=== PATIENT | male | born 1970 | race Caucasian/White ===

== ENCOUNTER 2022-10-17 11:38 | Inpatient (IN) | payer MEDICAID ==
[~2022-10-17] VITALS: Ht 170.2 cm; Wt 70.8 kg
[2022-10-17] MEDS ORDERED: IV NS 0.9% 1,000 ML BAG IV ONE ×2 (12:00→16:00)
--- NOTE | 2022-10-17 12:00 | NUR ---
PT IN BED 7, UNLABORED BREATHING 95% ON ROOM AIR. C/O IN DISTRESS FROM PAIN IN ABDOMEN 10/10 RESTLESS AND MOANING. PORTUGUESE SPEAKING Hx OF GASTRIC ULCERS AND SCHIZO. STATES THAT HE HAS A SPICY BURRITO YESTERDAY.
[2022-10-17] MEDS ORDERED: ONDANSETRON HCL/PF 4 MG/2 ML VIAL ONE (12:10)
[2022-10-17] MEDS ORDERED: FAMOTIDINE/PF INJ 20 MG/2 ML VIAL IV ONE ×2 (12:10→12:30)
[2022-10-17] MEDS ORDERED: MORPHINE SULFATE INJ 4 MG/ML DISP.SYRIN ONE (12:10)
[2022-10-17 12:21] LABS: BILIRUBIN,URINE NEGATIVE (NEGATIVE); COLOR,URINE YELLOW (YELLOW); LEUKOCYTE ESTERASE ,URINE NEGATIVE (NEGATIVE); NITRITE, URINE NEGATIVE (NEGATIVE); PROTEIN,URINE TRACE mg/dl (NEGATIVE); UGLUCOSE NEGATIVE (NEGATIVE)
[2022-10-17] MEDS ORDERED: ONDANSETRON HCL/PF - ER 4 MG/2 ML VIAL IV ONE (12:30)
[2022-10-17] MEDS ORDERED: IV NS 0.9% 1,000 ML IV ONE (12:30)
[2022-10-17] MEDS ORDERED: MORPHINE SULFATE INJ 2 MG/ML DISP.SYRIN IV ONE (12:30)
[2022-10-17 12:35] LABS: BASOPHILS # (AUTO) 0.1 K/uL (0.0-0.2); BASOPHILS % (AUTO) 0.5 % (0.0-2.0); EOSINOPHILS % (AUTO) 0.6 % (0.0-6.0); HEMATOCRIT 46 % (39-51); HEMOGLOBIN 15.1 g/dL (13.5-17.5); MEAN CORPUSCULAR HGB CONC 33 g/dl (31.0-36.0); MEAN CORPUSCULAR VOLUME 85 fL (80-96); MONOCYTES # (AUTO) 1.9 K/uL (0.1-1.30); MONOCYTES % (AUTO) 9.6 % (2.0-12.0); NEUTROPHILS # (AUTO) 14.8 K/uL (1.8-8.9); NEUTROPHILS % (AUTO) 74.3 % (43.0-81.0); PLATELET COUNT (AUTO) 361 K/uL (150-450); RED BLOOD CELL COUNT(AUTO) 5.42 MIL/uL (4.5-6.0); WHITE BLOOD COUNT (AUTO) 19.9 K/uL (4.3-11.0)
[2022-10-17 12:47] LABS: CALCIUM, SERUM 9.7 mg/dL (8.5-10.1); POTASSIUM 3.6 mmol/L (3.5-5.1)
[2022-10-17 12:54] LABS: ALBUMIN 3.9 g/dL (3.4-5.0); BILIRUBIN,DIRECT 0.2 mg/dL (0.0-0.2); BILIRUBIN,TOTAL 0.6 mg/dL (0.2-1.0); TOTAL PROTEIN, SERUM 8.1 g/dL (6.4-8.2)
[2022-10-17 12:59] LABS: BACTERIA,URINE None seen /HPF (None Seen); SQUAMOUS EPITHELIAL CELL,UR None Seen /HPF (None Seen); WBC,URINE 0-2 /HPF (0-3)
[2022-10-17] MEDS ORDERED: HYDROMORPHONE 1 MG/1 ML DISP.SYRIN ONE ×2 (13:15→16:41)
[2022-10-17] MEDS ORDERED: HYDROMORPHONE 1 MG/1 ML DISP.SYRIN IV ONE ×2 (13:30→17:00)
--- NOTE | 2022-10-17 13:56 | NUR ---
CT IMAGE TAKEN
--- NOTE | 2022-10-17 14:11 | NUR ---
COVID SWAB COLLECTED AND SENT TO LAB
--- NOTE | 2022-10-17 14:32 | NUR ---
US TECH AT BEDSIDE
--- NOTE | 2022-10-17 14:39 | NUR ---
YVETTE REGAL [phone]
[2022-10-17] MEDS ORDERED: HALO20TA7 PO (15:12)
[2022-10-17] MEDS ORDERED: PIPERACILLIN /TAZOBACTAM 3.375 G in IV D5W 50 ML IV ONE (16:00)
--- NOTE | 2022-10-17 18:05 | NUR ---
CALLED YVETTE REGAL [phone] LEFT .
--- NOTE | 2022-10-17 20:17 | NUR ---
HANDOFF REPORT GIVEN TO BREN WINTER IN 3W
--- NOTE | 2022-10-17 20:29 | NUR ---
SENT FACESHEET TO DR TINAJERO
[2022-10-17] MEDS ORDERED: HYDROMORPHONE 1 MG/1 ML DISP.SYRIN IV PRN ×2 (20:30→23:30)
--- NOTE | 2022-10-17 20:50 | NUR ---
MARINE ENGINEERING CONSULTANTCONTRACT RUNNER NOTES RECEIVED THIS 52 YO MALE FROM ER PER EARNEST,ALERT,ORIENTED X4,ESTONIAN SPEAKING,UNDERSTAND SIERRA LEONEAN,WITH CHIEF COMPLAINTS OF ABDOMINAL PAIN AFTER EATING SPICY BURRITO.WITH SALINE LOCK RIGHT FOREARM #20 INTACT AND PATENT,ABLE TO AMBULATE WITH STEADY GAIT,NO KNOWN ALLERGY TO FOOD AND MEDICATIONS,NO SKIN ISSUES.WILL CONTIUE TO MONITOR STATUS,CALL LIGHT IN REACH,NEEDS ANTICIPATED.
[2022-10-17 21:00] VITALS: BP 156/87
--- NOTE | 2022-10-17 21:54 | NUR ---
SPA DIRECTOR NOTES PAIN MANAGEMENT C/O ABDOMINAL PAIN 8/10 ON PAIN SCALE.MEDICATED WITH DILAUDID 1MG IV ORDERED.VITAL SIGNS STABLE.
--- NOTE | 2022-10-17 23:10 | NUR ---
SKI GUIDE NOTES PAGE HOSPITALIST CRYSTAL MOUNTER FOR REGAL UNDER DR GILL
--- NOTE | 2022-10-17 23:20 | NUR ---
HARPSICHORD MAKER NOTES DR HILL,EVENT ATTENDANT FOR DR GILL CALL BACK WITH ORDERS NOTED AND CARRIED OUT.
[2022-10-17] MEDS ORDERED: ZOLPIDEM TARTRATE 5 MG TABLET PO PRN (23:30)
[2022-10-17] MEDS ORDERED: IV D5/0.45 NACL 1,000 ML IV PRN (23:30)
[2022-10-17] MEDS ORDERED: ONDANSETRON HCL/PF 4 MG/2 ML VIAL IV PRN (23:30)
[2022-10-17] MEDS ORDERED: ACETAMINOPHEN 325 MG TABLET PO PRN (23:30)
--- NOTE | 2022-10-17 23:48 | NUR ---
COMMERCIAL CLEANER NOTES STARTED ON IVF D5 1/2 NS AT 100ML/HR RATE ORDERED,INFUSING VIA IV PUMP.
[2022-10-18] VITALS (9 sets, daily range): BP systolic 83–161; BP diastolic 75–89
[2022-10-18] MEDS: HYDROMORPHONE 1 MG/1 ML DISP.SYRIN IV PRN ×2 (01:19→05:27)
--- NOTE | 2022-10-18 01:19 | NUR ---
BALANCE BRIDGE INSPECTOR NOTES HAVING ABDOMINAL PAIN 8/10 ON PAIN SCALE,MEDICATED WITH DILAUDID 1MG IV ORDERED
--- NOTE | 2022-10-18 01:19 | NUR ---
CAR DUMPER OPERATOR NOTES PAIN MANAGEMENT AWAKE,C/O ABDOMINAL PAIN 8/10 ON PAIN SCALE.DILAUDID 1MG IV GIVEN ORDERED.
--- NOTE | 2022-10-18 05:27 | NUR ---
CAREER PROFESSIONAL NOTES PAIN MANAGEMENT C/O ABDOMINAL PAIN, 91/0 ON PAIN SCALE,MOANS.MEDICATED WITH DILAUDID 1MG IV FOR SEVERE PAIN.VITAL SIGNS STABLE.
[2022-10-18 05:53] LABS: BASOPHILS # (AUTO) 0.1 K/uL (0.0-0.2); BASOPHILS % (AUTO) 0.4 % (0.0-2.0); EOSINOPHILS % (AUTO) 0.6 % (0.0-6.0); HEMATOCRIT 47 % (39-51); HEMOGLOBIN 15.5 g/dL (13.5-17.5); LYMPHOCYTES # (AUTO) 1.8 K/uL (0.8-4.8); LYMPHOCYTES % (AUTO) 10.5 % (20.0-44.0); MEAN CORPUSCULAR HGB CONC 33 g/dl (31.0-36.0); MEAN CORPUSCULAR VOLUME 86 fL (80-96); MONOCYTES # (AUTO) 2.3 K/uL (0.1-1.30); MONOCYTES % (AUTO) 13.8 % (2.0-12.0); NEUTROPHILS # (AUTO) 12.5 K/uL (1.8-8.9); NEUTROPHILS % (AUTO) 74.7 % (43.0-81.0); PLATELET COUNT (AUTO) 283 K/uL (150-450); RED BLOOD CELL COUNT(AUTO) 5.47 MIL/uL (4.5-6.0); WHITE BLOOD COUNT (AUTO) 16.8 K/uL (4.3-11.0)
[2022-10-18 06:13] LABS: ALBUMIN 3.5 g/dL (3.4-5.0); BILIRUBIN,TOTAL 2.9 mg/dL (0.2-1.0); CALCIUM, SERUM 9.2 mg/dL (8.5-10.1); POTASSIUM 3.3 mmol/L (3.5-5.1); TOTAL PROTEIN, SERUM 7.8 g/dL (6.4-8.2)
--- NOTE | 2022-10-18 06:26 | NUR ---
VIDEO PRODUCTION ASSISTANT NOTES ON BED CALM AND QUIET.PAIN MANAGEMENT EFFECTIVE.KEPT NPO EXCEPT MEDS ORDERED.IVF INFUSING WELL ON RIGHT AC SALINE LOCK.POSSIBLE SURGERY TODAY,WILL FOLLOW UP WITH DR TINAJERO FOR CONSENT.IN NO ACUTE DISTRESS.
--- NOTE | 2022-10-18 07:00 | NUR ---
WIRE WINDING MACHINE TENDER OPENING NOTES: RECEIVED PT IN BED ASLEEP, EASILY AROUSED WITH STIMULI ALERT AND ORIENTED X 4 AND ABLE TO MAKE NEEDS KNOWN. NO SOB OR CARDIAC DISTRESS NOTED, ON ROOM AIR AND TOLERATING WELL. ON TELE MONITOR WITH CURRENT READING SINUS RHYTHM @80 BPM NOTED WITH IV ACCESS ON RFA GAUGE 20 PATIENT AND INTACT AND INFUSING D5 1/2 NS @ 100ML/HR. SAFETY MEASURES MAINTAINED: BED LOCKED AND IN LOWEST POSITION, SIDE RAILS UP X 2. CALL LIGHT LIGHT IN EASY REACH AND WILL MONITOR ACCORDINGLY.
[2022-10-18] MEDS ORDERED: PANTOPRAZOLE 40 MG VIAL IV SCH (09:30)
--- NOTE | 2022-10-18 09:48 | NUR ---
RN NOTES: PT SEEN AND EXAMINED BY DR GILL. CALLED DR TINAJERO SURGERY SCHEDULED TODAY AT 1030AM FOR LAPAROSCOPIC CHOLECYSTECTOMY POSSIBLE OPEN LAPAROTOMY WITH CHOLANGIOGRAM. DR GILL MADE AWARE.
--- NOTE | 2022-10-18 10:00 | NUR ---
RN NOTES: CONSENT SIGNED BY PT, EXPLAINED BY MS ROSE (CHARGE NURSE) PT'S SISTER MS NUR ON PHONE (LOUD SPEAKER) PT AND FAMILY VERBALIZED UNDERSTANDING ABOUT THE SURGERY.
[2022-10-18] MEDS: POTASSIUM CL. PREMIX PERIPHER. 50 ML IV SCH ×2 (10:03→17:41)
[2022-10-18] MEDS ORDERED: BUPIVACAINE MPF 0.5% W/EPI INJ 30 ML VIAL ONE (10:06)
[2022-10-18] MEDS ORDERED: LIDOCAINE 1% INJ 50 ML MDV IJ ONE (10:06)
--- NOTE | 2022-10-18 10:43 | NUR ---
RN NOTES: PT P/U BY SURGERY TEAM VIA BED. PT LEFT THE UNIT STABLE.
[2022-10-18] MEDS ORDERED: IOHEXOL 240MG/ML 0 ML IV ONE (10:52)
[2022-10-18] MEDS: PIPERACILLIN /TAZOBACTAM 3.375 G in IV D5W 50 ML IV SCH ×2 (12:00→17:19)
[2022-10-18] MEDS ORDERED: FENTANYL PF 250MCG/5ML AMPUL ONE (12:20)
[2022-10-18] MEDS ORDERED: HYDROMORPHONE INJ 2 MG/ML DISP.SYRIN ONE (12:20)
[2022-10-18] MEDS ORDERED: MIDAZOLAM HCL 2 MG/2ML VIAL ONE (12:20)
[2022-10-18] MEDS ORDERED: FAMOTIDINE/PF INJ 20 MG/2 ML VIAL IV ONE (12:21)
[2022-10-18] MEDS ORDERED: ROCURONIUM BROMIDE 50 MG/5 ML ONE (12:21)
[2022-10-18] MEDS ORDERED: GLYCOPYRROLATE 0.2 MG/ML VIAL ONE (12:30)
[2022-10-18] MEDS ORDERED: BACITRACIN ZINC OINT PACKET 1 EA PACKET TP ONE (14:14)
[2022-10-18] MEDS ORDERED: FENTANYL PF 100MCG/2ML AMPUL ONE (15:56)
--- NOTE | 2022-10-18 16:23 | NUR ---
S/P CHOLECYSTECTOMY RN NOTES: PT S/P CHOLECYSTECTOMY. PT AWAKE, ALERT AND ORIENTED X4 CITIZEN OF [place] SPEAKER. ON O2 INHALATION @3LPM VIA NC FOR COMFORT. NGT TUBE IN PLACE 70CM ATTACHED TO LOW INTERMITTENT SUCTION DRAINING GREENISH COLORED OUTPUT. ON TELE MONITOR WITH CURRENT READING OF SINUS AT 80BPM.NOTED WITH SURGICAL DRESSING DRY AND INTACT NOTED WITH VASILE 19 BUBL ON NEGATIVE PRESSURE WITH SEROUS COLORED OUTPUT. NOTED WITH KERNS CATHETER DRAINING CLEAR COLORED URINE DRAINING VIA GRAVITY. IV FLUIDS RUNNING LR 150ML/HR PATENT, INTACT AND INFUSING IV FLUIDS WELL. POST OP ORDERS NOTED AND CARRIED OUT. PT PROVIDED ICE CHIPS AND TOLERATED WELL. HE WILL START CLEAR LIQUIDS TOMORROW PER ORDER. SAFETY MEASURES MAINTAINED. BED LOCKED AND IN LOWEST POSITION, SIDE RAILS UP X 2. CALL LIGHT IN EASY REACH FOR HELP. WILL MONITOR ACCORDINGLY.
[2022-10-18] MEDS: IV LR 1000 ML 1,000 ML IV PRN (16:56)
[2022-10-18] MEDS: LORAZEPAM 1 MG TABLET PO SCH (17:42)
[2022-10-18] MEDS: ACETAMINOPHEN 325 MG TABLET PO SCH (17:42)
[2022-10-18] MEDS: GABAPENTIN 300 MG CAPSULE PO SCH (17:42)
[2022-10-18] MEDS: CELECOXIB 100 MG CAPSULE PO SCH (17:42)
[2022-10-18] MEDS ORDERED: HYDROMORPHONE 2 MG/1 ML SDV IV PRN (18:00)
[2022-10-18] MEDS: HYDROMORPHONE INJ 2 MG/ML DISP.SYRIN IV PRN (18:35)
--- NOTE | 2022-10-18 19:30 | NUR ---
noc rn opening received in bed with eyes closed, easy to arouse. not exhibiting s/s of apparent distress on 2lpm of o2 via nc. denies pain at this time. patient drowsy at this time, s/p surgery. patient has NG tube in at 70cm, in low intermittent suction and has greenish output. montes de oca cath draining via gravity natalie colored urine. patient has geraldine 19 w bulb on his right lateral abdomen with serous drainage, dressing clean, dry and intact. R.FA #20g running LR @150mls/hr. reading sr on the tele monitor with [address]-- bed in lowest, locked position, call light within reach, bed alarm in place. will continue with patient's plan of care and will continue to monitor patient post-op.
--- NOTE | 2022-10-18 19:39 | NUR ---
RN NOTES: PT ALERT AND ORIENTED X 4 AND PER PT PAIN IS LESSER. DRAINED ALL THE TUBES AND PROPERLY DOCUMENTED. ENDORSED FOR CONTINUITY OF CARE.
[2022-10-19] VITALS: BP 127/81
[2022-10-19] MEDS: PIPERACILLIN /TAZOBACTAM 3.375 G in IV D5W 50 ML IV SCH ×4 (00:06→18:37)
[2022-10-19] MEDS: HYDROMORPHONE INJ 2 MG/ML DISP.SYRIN IV PRN ×4 (00:50→20:04)
--- NOTE | 2022-10-19 02:13 | NUR ---
noc rn note patient c/o of 9/10 pain in his abdomen surgical site. Given Dilaudid 1.5 mg as ordered PRN. Partial dose wasted with MAGGY Otero in proper waste bin. will re-assess.
[2022-10-19] MEDS: GABAPENTIN 300 MG CAPSULE PO SCH ×3 (02:18→18:36)
[2022-10-19] MEDS: ACETAMINOPHEN 325 MG TABLET PO SCH ×3 (02:18→18:39)
[2022-10-19 04:00] VITALS: BP 137/86
--- NOTE | 2022-10-19 05:27 | NUR ---
noc rn note patient was in severe pain, moaning after ADL's. Patient given Dilaudid 1.5mg as ordered PRN. partial dose wasted with MAGGY Otero in proper waste bin.
[2022-10-19] MEDS: LORAZEPAM 1 MG TABLET PO SCH ×2 (06:03→18:36)
[2022-10-19] MEDS: CELECOXIB 100 MG CAPSULE PO SCH ×2 (06:04→18:36)
--- NOTE | 2022-10-19 07:11 | NUR ---
noc rn closing note patient in bed, with eyes closed, easy to arouse. no s/s of apparent distress on room air. pain managed with medications. reading sr at this time. all needs attended. all scheduled medications administered. Michael drain still draining serous output-- emptied 180 mls. Left nare NGT still in @70cm, secured on intermittent suction with green output-- 200ml. montes de oca cath draining clear, natalie urine. will endorse to morning shift rn for continuity of care.
[2022-10-19 07:13] LABS: BASOPHILS # (AUTO) 0.1 K/uL (0.0-0.2); BASOPHILS % (AUTO) 0.4 % (0.0-2.0); EOSINOPHILS % (AUTO) 0.6 % (0.0-6.0); HEMATOCRIT 40 % (39-51); HEMOGLOBIN 13.2 g/dL (13.5-17.5); LYMPHOCYTES # (AUTO) 2.3 K/uL (0.8-4.8); LYMPHOCYTES % (AUTO) 14.1 % (20.0-44.0); MEAN CORPUSCULAR HGB CONC 33 g/dl (31.0-36.0); MEAN CORPUSCULAR VOLUME 86 fL (80-96); MONOCYTES # (AUTO) 2.1 K/uL (0.1-1.30); MONOCYTES % (AUTO) 12.9 % (2.0-12.0); NEUTROPHILS # (AUTO) 11.5 K/uL (1.8-8.9); PLATELET COUNT (AUTO) 254 K/uL (150-450)
--- NOTE | 2022-10-19 07:20 | NUR ---
ms rn patient on bed, awake,alert,oriented x4, ngt connected to suction w/ greenish output, denies pain at this time, iv infusing at right upper arm, no fever, no pain, tolerating diet well, s/p abd surgery , will monitor patient,all needs attended.
[2022-10-19 07:22] LABS: POTASSIUM 3.6 mmol/L (3.5-5.1)
[2022-10-19 07:30] LABS: ALBUMIN 2.7 g/dL (3.4-5.0); BILIRUBIN,TOTAL 1.4 mg/dL (0.2-1.0); TOTAL PROTEIN, SERUM 6.8 g/dL (6.4-8.2)
[2022-10-19 08:39] VITALS: BP 112/78
[2022-10-19] MEDS: PANTOPRAZOLE 40 MG TABLET.DR PO SCH (09:28)
--- NOTE | 2022-10-19 10:00 | NUR ---
ms syed breakfast served,due meds given,tolerated well.
[2022-10-19 14:38] VITALS: BP 123/80
[2022-10-19 16:07] VITALS: BP 122/78
--- NOTE | 2022-10-19 16:36 | NUR ---
ms rn sleeping at this time, no distress noted.
--- NOTE | 2022-10-19 19:10 | NUR ---
RN OPENING NOTE RECEIVED PATIENT ON BED AWAKE. ABLE TO MAKE NEEDS KNOWN. A/O X4. IV ACCESS ON RIGHT FOREARM #20 NOTED TO BE INTACT AND PATENT INFUSING LR @100CC/HR. PATIENT WITH KERNS DRAINING CLEAR YELLOW URINE. SURGICAL INCISION ASSESSED: SITE IS DRY AND INTACT NO SIGNS OF BLEEDING NOTED. NO COMPLAINS OF PAIN AT THIS TIME, PATIENT ON ROOM AIR TOLERATING WELL NO SOB. NOT IN DISTRESS NOTED. ON TELE MONITOR READING OF SINUS RHYTHM 101BPM. NO COMPLAINS OF CHEST PAIN. SAFETY MEASURE IN PLACED: BED LOCKED AND IN LOWEST POSITION, HOB ELEVATED, BEDSIDE TABLE AND CALL LIGHT WITHIN PATIENT REACH.
--- NOTE | 2022-10-19 19:14 | NUR ---
ms rn patient on bed, no distress noted,all needs attended.
--- NOTE | 2022-10-19 19:20 | NUR ---
RN OPENING NOTE RECEIVED PATIENT IN BED AWAKE. A/OX2 PATIENT IS TALKING TO SELF IN [place] BUT ABLE TO ANSWER SIMPLE QUESTIONS IN [place]. ABLE TO COMMUNICATE WITH PATIENT NO NEED FOR TRANSLATION. IV ACCESS ON RIGHT FOREARM #20 NOTED TO BE INTACT AND PATENT INFUSING LR @100CC/HR. PATIENT S/P SURGERY JPRATT DRAINAGE IS IN PLACED NOTED TO BE DRAINING WELL. PATIENT WITH NGT ON LEFT NARE ATTACHED TO LOW INTERMITTENT SUCTION DRAINING DARK GREEN FLUID. PATIENT WITH KERNS CATHETER NOTED TO BE DRAINING WELL WITH CLEAR YELLOW URINE. SAFETY MEASURE IN PLACED: BED LOCKED AND IN LOWEST POSITION, HOB ELEVATED, SIDE RAILS UP X3, BED SIDE TABLE AND CALL LIGHT WITHIN PATIENT REACH.
[2022-10-19 20:00] VITALS: BP 119/71
--- NOTE | 2022-10-19 20:04 | NUR ---
RN NOTE PATIENT COMPLAINS OF SURGICAL SITE PAIN WITH GUARDING BEHAVIOR TO THE ABDOMEN PAIN SCALE OF 9/10. WAS GIVEN PRN PAIN MEDICATION. WILL REASSESS.
--- NOTE | 2022-10-19 20:10 | NUR ---
RN NOTE ORDER TO REMOVE NG-TUBE RECEIVED AND CARRIED OUT.
--- NOTE | 2022-10-19 20:34 | NUR ---
RN NOTE REASSESSED PATIENT PAIN. PATIENT IS SLEEPING BREATHING EVENLY AND UNLABORED, EASILY AWAKEN WHEN CALLED BY NAME. PATIENT CLAIMS TO BE RELIVED WITH PAIN.
[2022-10-20] VITALS: BP 108/66
[2022-10-20] MEDS: PIPERACILLIN /TAZOBACTAM 3.375 G in IV D5W 50 ML IV SCH ×4 (00:06→18:53)
[2022-10-20] MEDS: GABAPENTIN 300 MG CAPSULE PO SCH ×2 (02:03→10:04)
[2022-10-20] MEDS: ACETAMINOPHEN 325 MG TABLET PO SCH ×3 (02:03→18:53)
[2022-10-20 04:00] VITALS: BP 117/76
[2022-10-20] MEDS: CELECOXIB 100 MG CAPSULE PO SCH ×2 (05:26→18:53)
[2022-10-20] MEDS: LORAZEPAM 1 MG TABLET PO SCH (05:26)
[2022-10-20 06:01] LABS: BASOPHILS # (AUTO) 0.1 K/uL (0.0-0.2); BASOPHILS % (AUTO) 0.9 % (0.0-2.0); EOSINOPHILS % (AUTO) 3.8 % (0.0-6.0); HEMATOCRIT 41 % (39-51); HEMOGLOBIN 13.5 g/dL (13.5-17.5); LYMPHOCYTES # (AUTO) 2.7 K/uL (0.8-4.8); LYMPHOCYTES % (AUTO) 19.4 % (20.0-44.0); MEAN CORPUSCULAR HGB CONC 33 g/dl (31.0-36.0); MEAN CORPUSCULAR VOLUME 85 fL (80-96); MONOCYTES # (AUTO) 1.5 K/uL (0.1-1.30); MONOCYTES % (AUTO) 10.6 % (2.0-12.0); NEUTROPHILS # (AUTO) 8.9 K/uL (1.8-8.9); NEUTROPHILS % (AUTO) 65.3 % (43.0-81.0); PLATELET COUNT (AUTO) 258 K/uL (150-450); RED BLOOD CELL COUNT(AUTO) 4.76 MIL/uL (4.5-6.0); WHITE BLOOD COUNT (AUTO) 13.7 K/uL (4.3-11.0)
[2022-10-20 06:22] LABS: ALBUMIN 2.7 g/dL (3.4-5.0); CALCIUM, SERUM 9.3 mg/dL (8.5-10.1); MAGNESIUM 2.1 mg/dL (1.8-2.4); POTASSIUM 3.4 mmol/L (3.5-5.1); TOTAL PROTEIN, SERUM 7.2 g/dL (6.4-8.2)
[2022-10-20] MEDS: IV LR 1000 ML 1,000 ML IV PRN (06:31)
--- NOTE | 2022-10-20 06:53 | NUR ---
RN CLOSING NOTE PATIENT IN BED AWAKE. A/OX2. ABLE TO COMMUNICATE WITH PATIENT NO NEED FOR TRANSLATION. IV ACCESS ON RIGHT FOREARM #20 NOTED TO BE INTACT AND PATENT INFUSING LR @100CC/HR. PATIENT S/P SURGERY JPRATT DRAINAGE IS IN PLACED NOTED TO BE DRAINING WELL OUTPUT OF 30CC THROUGH OUT THE SHIFT. SURGICAL DRESSING IS ASSESSED: NOTED TO BE DRY AND INTACT. PATIENT WITH KERNS CATHETER NOTED TO BE DRAINING WELL WITH CLEAR YELLOW URINE OUTPUT OF 900CC. ALL DUE MEDICATIONS ARE GIVEN. ALL NEEDS ARE MET. MADE SURE PATIENT IS COMFORTABLE. SAFETY MEASURE IN PLACED: BED LOCKED AND IN LOWEST POSITION, HOB ELEVATED, SIDE RAILS UP X3, BED SIDE TABLE AND CALL LIGHT WITHIN PATIENT REACH. ENDORSED TO NEXT SHIFT NURSE FOR CONTINUITY OF CARE.
[2022-10-20 07:00] VITALS: BP 112/82
--- NOTE | 2022-10-20 07:20 | NUR ---
ms rn received on bed, awake,alert,oriented x3-4,not in any form of distress, respirations even and unlabored,no sob noted, s/p cholesistectomy, w/ solitario drain intact, serous output.denies pain ,no fever,no nausea, tolerating diet well, montes de oca to gravity bag w/ natalie colored urine.all needs attended.
[2022-10-20] MEDS ORDERED: POTASSIUM CHLORIDE 20 MEQ TAB.PRT.SR PO ONE (09:30)
[2022-10-20] MEDS: PANTOPRAZOLE 40 MG TABLET.DR PO SCH (10:04)
--- NOTE | 2022-10-20 10:20 | NUR ---
ms syed breakfast served,due meds given,tolerated well.
[2022-10-20] MEDS: HYDROMORPHONE INJ 2 MG/ML DISP.SYRIN IV PRN ×2 (15:21→20:52)
--- NOTE | 2022-10-20 17:00 | NUR ---
ms rn montes de oca removed with x1 urine output.no distress noted.
--- NOTE | 2022-10-20 19:30 | NUR ---
COMPRESSOR STATION ENGINEER CHIEF OPENING NOTE RECEIVED PT IN BED AWAKE, WATCHING TV AT THIS TIME. A/O X3, ABLE TO MAKE NEEDS KNOWN. ON RA WITH NO S/S OF SOB OR DISTRESS. ON TELE MONITOR WITH CURRENT READING OF SR, 85 HR. IV ACCESS RFA #20G, INTACT, PATENT, INFUSING LR @100 CC/HR. S/P SURGERY JPRATT DRAINAGE IS IN PLACE, INTACT, DRAINING WELL. SURGICAL DRESSING IS ASSESSED: NOTED TO BE DRY AND INTACT. SAFETY MEASURES IN PLACE: BED LOCKED AND IN LOWEST POSITION, HOB ELEVATED, SIDE RAILS UP X3, BED SIDE TABLE AND CALL LIGHT WITHIN PATIENT REACH. WILL CONTINUE TO MONITOR AND ASSIST.
--- NOTE | 2022-10-20 19:34 | NUR ---
ms rn on bed ,no distress,will monitore patient.
[2022-10-20 20:00] VITALS: BP 108/65
[2022-10-21] VITALS: BP 110/67
[2022-10-21] MEDS: IV LR 1000 ML 1,000 ML IV PRN (00:44)
[2022-10-21] MEDS: PIPERACILLIN /TAZOBACTAM 3.375 G in IV D5W 50 ML IV SCH ×4 (00:44→18:45)
[2022-10-21] MEDS: ACETAMINOPHEN 325 MG TABLET PO SCH ×3 (01:23→18:00)
[2022-10-21] MEDS: HYDROMORPHONE INJ 2 MG/ML DISP.SYRIN IV PRN ×5 (03:02→22:26)
[2022-10-21 04:00] VITALS: BP 111/95
[2022-10-21] MEDS: CELECOXIB 100 MG CAPSULE PO SCH ×2 (06:11→18:45)
--- NOTE | 2022-10-21 06:49 | NUR ---
DISTRIBUTION COLLECTION OPERATOR CLOSING NOTE PT IN BED SLEEIPNG, EASILY AROUSABLE. A/O X3, ABLE TO MAKE NEEDS KNOWN. STABLE ON RA WITH NO S/S OF SOB OR DISTRESS. ON TELE MONITOR WITH CURRENT READING OF SR, 67 HR. IV ACCESS RFA #20G, INTACT, PATENT, INFUSING LR @100 CC/HR. S/P SURGERY OPEN CHOLECYSTECTOMY WITH CHOLANGIOGRAM, DRESSING DRY AND INTACT. WILMAN DRAIN IN PLACE, INTACT, DRAINED A TOTAL OF 5ML DURING SHIFT. ALL CARE PROVIDED AND MEDS TOLERATED WELL. SAFETY MEASURES MAINTAINED: BED LOCKED AND IN LOWEST POSITION, HOB ELEVATED, SIDE RAILS UP X3, BED SIDE TABLE AND CALL LIGHT WITHIN PATIENT REACH. WILL ENDORSE ANNABELLE TO DAY SHIFT NURSE.
--- NOTE | 2022-10-21 07:20 | NUR ---
ms rn received on bed, sleeping, no distress noted, iv at right upper arm, s/p cholecystectomy w/ solitario drain draining sanguinous output, denies pain at this time, abdomen soft,positive bowel sounds,will monitor patient.
[2022-10-21 07:33] LABS: BASOPHILS # (AUTO) 0.1 K/uL (0.0-0.2); BASOPHILS % (AUTO) 1.2 % (0.0-2.0); HEMATOCRIT 36 % (39-51); LYMPHOCYTES # (AUTO) 2.6 K/uL (0.8-4.8); LYMPHOCYTES % (AUTO) 29.1 % (20.0-44.0); MEAN CORPUSCULAR HGB CONC 33 g/dl (31.0-36.0); MEAN CORPUSCULAR VOLUME 85 fL (80-96); MONOCYTES # (AUTO) 0.9 K/uL (0.1-1.30); MONOCYTES % (AUTO) 10.4 % (2.0-12.0); NEUTROPHILS # (AUTO) 4.7 K/uL (1.8-8.9); NEUTROPHILS % (AUTO) 52.3 % (43.0-81.0); PLATELET COUNT (AUTO) 317 K/uL (150-450); RED BLOOD CELL COUNT(AUTO) 4.21 MIL/uL (4.5-6.0)
[2022-10-21 08:00] VITALS: BP 107/70
[2022-10-21 08:10] LABS: CALCIUM, SERUM 9.1 mg/dL (8.5-10.1); POTASSIUM 3.5 mmol/L (3.5-5.1)
[2022-10-21 08:17] LABS: ALBUMIN 2.5 g/dL (3.4-5.0); BILIRUBIN,TOTAL 1.1 mg/dL (0.2-1.0); MAGNESIUM 2.1 mg/dL (1.8-2.4); TOTAL PROTEIN, SERUM 6.7 g/dL (6.4-8.2)
[2022-10-21] MEDS: PANTOPRAZOLE 40 MG TABLET.DR PO SCH (08:41)
--- NOTE | 2022-10-21 09:50 | NUR ---
ms syed breakfast served,due meds given,tolerated well.
--- NOTE | 2022-10-21 15:20 | NUR ---
ms rn was seen by dr. karuna tarango/ orders made and carried out.
[2022-10-21 16:00] VITALS: BP 115/73
--- NOTE | 2022-10-21 19:00 | NUR ---
ms rn came back from smoking, medicated for pain,all needs attended.
[2022-10-21 20:00] VITALS: BP 131/75
--- NOTE | 2022-10-21 20:00 | NUR ---
WAREHOUSE PERSON OPENING NOTES: RECEIVED PATIENT AWAKE IN BED, BED IN LOW POSITION CALL LIGHTS WITHIN REACH, NO COMPLAIN OF PAIN AND DISCOMFORT AT THIS TIME, ON ROOM AIR SATURATING WELL, PATIENT IS A/O X4 ABLE TO MAKE NEEDS KNOWN, ON WILMAN DRAIN PATENT, PATIENT IS AMBULATORY REMIND TO USE THE CALL LIGHTS WHEN NEEDED ASSISTANCE, IV LINE AT RFA#20SL, PATIENT KEPT CLEAN AND DRY ALL NEEDS MET WILL CONTINUE TO MONITOR-
[2022-10-22] VITALS: BP 120/72
[2022-10-22] MEDS: PIPERACILLIN /TAZOBACTAM 3.375 G in IV D5W 50 ML IV SCH ×5 (00:04→23:55)
[2022-10-22] MEDS: ACETAMINOPHEN 325 MG TABLET PO SCH ×3 (01:40→17:30)
[2022-10-22] MEDS: HYDROMORPHONE INJ 2 MG/ML DISP.SYRIN IV PRN ×3 (02:00→19:32)
[2022-10-22 04:00] VITALS: BP 117/63
[2022-10-22] MEDS: CELECOXIB 100 MG CAPSULE PO SCH ×2 (06:04→17:24)
--- NOTE | 2022-10-22 06:45 | NUR ---
RN NOTES: WILMAN DRAIN REMOVE- 5CC BRIGHT RED. WILL CONTINUE TO MONITOR.
--- NOTE | 2022-10-22 07:12 | NUR ---
SURGICAL MANAGER CLOSING NOTES: PATIENT AWAKE IN BED, BED IN LOW POSITION, CALL LIGHTS WITHIN REACH, NO COMPLAIN OF PAIN AND DISCOMFORT AT THIS TIME, ON ROOM AIR SATURATING WELL, PATIENT IS A/O X4 ABLE TO MAKE NEEDS KNOWN ON TELE MONITOR- SR-68, PATIENT KEPT CLEAN AND DRY ALL NEEDS MET ENDORSE TO INCOMING SHIFT.
--- NOTE | 2022-10-22 07:30 | NUR ---
NURSE FIRST AID OPENING NOTE RECEIVED PT IN BED ASLEEP, A/O X4, ABLE TO MAKE NEEDS KNOWN. ON ROOM AIR TOLERATING WELL WITH NO S/S OF SOB OR DISTRESS. ON TELE MONITOR WITH CURRENT READING OF SR, 69 HR. IV ACCESS RFA #20G SL INTACT, PATENT. S/P SURGERY JPRATT DRAINAGE IS IN PLACE, INTACT, DRAINING WELL. SURGICAL DRESSING IS ASSESSED: NOTED TO BE DRY AND INTACT. SAFETY MEASURES IN PLACE: BED LOCKED AND IN LOWEST POSITION, HOB ELEVATED, SIDE RAILS UP X3, BED SIDE TABLE AND CALL LIGHT WITHIN PATIENT REACH. WILL CONTINUE TO MONITOR AND ADMINISTER ALL SCHEDULED MEDS ORDERED.
[2022-10-22] MEDS: PANTOPRAZOLE 40 MG TABLET.DR PO SCH (08:13)
--- NOTE | 2022-10-22 18:37 | NUR ---
CAR CLERK PULLMAN CLOSING NOTE PT IN BED RESTING WELL, A/O X4, ABLE TO MAKE NEEDS KNOWN. ON ROOM AIR TOLERATING WELL WITH NO S/S OF SOB OR DISTRESS. ON TELE MONITOR WITH CURRENT READING OF SR, 74 HR. IV ACCESS RFA #20G SL INTACT, PATENT. S/P SURGERY JPRATT DRAINAGE IS IN PLACE, INTACT, DRAINING WELL, 30 CC OUTPUT. SURGICAL DRESSING IS ASSESSED: NOTED TO BE DRY AND INTACT. BRUISING NOTED ON ABDOMEN S/P SURGERY. PAIN MGT ORDERED. SAFETY MEASURES IN PLACE: BED LOCKED AND IN LOWEST POSITION, HOB ELEVATED, SIDE RAILS UP X3, BED SIDE TABLE AND CALL LIGHT WITHIN PATIENT REACH. ALL MEDS GIVEN, WILL ENDORSE TO NEXT SHIFT
--- NOTE | 2022-10-22 19:21 | NUR ---
BONE COOKING OPERATOR OPENING NOTES: RECEIVED PATIENT AWAKE IN BED BED IN LOW POSITION, CALL LIGHTS WITHIN REACH, NO COMPLAIN OF PAIN AND DISCOMFORT AT THIS TIME, ON ROOM AIR SATURATING WELL, PATIENT IS A/O X3-4 ABLE TO MAKE NEEDS KNOWN, AMBULATORY WITH ASSIST, ON WILMAN DRAIN RIGHT LOWER ABDOMEN, IV LINE AT RFA#20 SL, ON TELE MONITOR- SR-83, PATIENT KEPT CLEAN AND DRY ALL NEEDS MET WILL CONTINUE TO MONITOR.
[2022-10-22 20:00] VITALS: BP 139/97
[2022-10-22 20:27] VITALS: BP 139/97
[2022-10-22 23:46] VITALS: BP 110/69
[2022-10-23] MEDS: ACETAMINOPHEN 325 MG TABLET PO SCH ×3 (02:00→18:16)
--- NOTE | 2022-10-23 02:02 | NUR ---
RN NOTES: ROUTINE TYLENOL 650MG Q8H, NOT GIVEN PATIENT ON NPO FOR PROCEDURE IN AM AND SLEEPING.
[2022-10-23] MEDS: HYDROMORPHONE INJ 2 MG/ML DISP.SYRIN IV PRN ×3 (02:55→20:19)
[2022-10-23 04:00] VITALS: BP 133/81
[2022-10-23 04:29] VITALS: BP 133/81
[2022-10-23] MEDS: CELECOXIB 100 MG CAPSULE PO SCH ×2 (06:00→18:17)
[2022-10-23] MEDS: PIPERACILLIN /TAZOBACTAM 3.375 G in IV D5W 50 ML IV SCH ×3 (06:03→18:10)
[2022-10-23 06:16] LABS: BASOPHILS # (AUTO) 0.1 K/uL (0.0-0.2); BASOPHILS % (AUTO) 1.2 % (0.0-2.0); EOSINOPHILS % (AUTO) 6.1 % (0.0-6.0); HEMATOCRIT 40 % (39-51); HEMOGLOBIN 13.2 g/dL (13.5-17.5); LYMPHOCYTES # (AUTO) 3.5 K/uL (0.8-4.8); LYMPHOCYTES % (AUTO) 29.9 % (20.0-44.0); MEAN CORPUSCULAR HGB CONC 33 g/dl (31.0-36.0); MEAN CORPUSCULAR VOLUME 86 fL (80-96); MONOCYTES # (AUTO) 1.1 K/uL (0.1-1.30); MONOCYTES % (AUTO) 9.2 % (2.0-12.0); NEUTROPHILS # (AUTO) 6.2 K/uL (1.8-8.9); NEUTROPHILS % (AUTO) 53.6 % (43.0-81.0); PLATELET COUNT (AUTO) 403 K/uL (150-450); RED BLOOD CELL COUNT(AUTO) 4.68 MIL/uL (4.5-6.0); WHITE BLOOD COUNT (AUTO) 11.6 K/uL (4.3-11.0)
--- NOTE | 2022-10-23 06:27 | NUR ---
STRAIGHTENING PRESS OPERATOR CLOSING NOTES; PATIENT SLEEP IN BED COMFORTABLY, BE DIN LOW POSITION CALL LIGHTS WITHIN REACH, NO COMPLAIN OF PAIN AND DISCOMFORT AT THIS TIME, ON ROOM AIR SATURATING WELL, PATIENT IS A/O X3-4 ABLE TO MAKE NEEDS KNOWN, AMBULATORY WITHI ASSIST, ON WILMAN DRAIN-20CC OUTPUT, IV LINE AT RFA#20SL, PATIENT KEPT CLEAN AND DRY ALL NEEDS MET ENDORSE TO INCOMING SHIFT.
[2022-10-23 06:42] LABS: BILIRUBIN,TOTAL 0.8 mg/dL (0.2-1.0); CALCIUM, SERUM 9.5 mg/dL (8.5-10.1); TOTAL PROTEIN, SERUM 7.7 g/dL (6.4-8.2)
--- NOTE | 2022-10-23 07:30 | NUR ---
SCRAP IRON CUTTER OPENING NOTE RECEIVED PT IN BED ASLEEP, A/O X4, ABLE TO MAKE NEEDS KNOWN. ON ROOM AIR TOLERATING WELL WITH NO S/S OF SOB OR DISTRESS. NO SIGNS OF PAIN AT THIS TIME. ON TELE MONITOR WITH CURRENT READING OF SR, 97 HR. IV ACCESS RFA #20G SL INTACT, PATENT. S/P SURGERY JPRATT DRAINAGE IS IN PLACE, INTACT, DRAINING WELL. SURGICAL DRESSING IS ASSESSED: NOTED TO BE DRY AND INTACT. SAFETY MEASURES IN PLACE: BED LOCKED AND IN LOWEST POSITION, HOB ELEVATED, SIDE RAILS UP X3, BED SIDE TABLE AND CALL LIGHT WITHIN PATIENT REACH. WILL CONTINUE TO MONITOR AND ADMINISTER ALL SCHEDULED MEDS ORDERED.
[2022-10-23 08:15] VITALS: BP 94/60
[2022-10-23] MEDS: PANTOPRAZOLE 40 MG TABLET.DR PO SCH (08:30)
[2022-10-23 11:54] VITALS: BP 112/67
[2022-10-23 16:09] VITALS: BP 110/76
--- NOTE | 2022-10-23 18:40 | NUR ---
FIELD TAX AUDITOR CLOSING NOTE PT IN BED RESTING WELL. A/O X4, ABLE TO MAKE NEEDS KNOWN. ON ROOM AIR TOLERATING WELL WITH NO S/S OF SOB OR DISTRESS. NO SIGNS OF PAIN AT THIS TIME. ON TELE MONITOR WITH CURRENT READING OF SR 88 HR. IV ACCESS RFA #20G SL INTACT, PATENT. S/P SURGERY JPRATT DRAINAGE IS IN PLACE, INTACT, DRAINING WELL, 30 CC OUTPUT. SURGICAL DRESSING IS ASSESSED: NOTED TO BE DRY AND INTACT. SAFETY MEASURES IN PLACE: BED LOCKED AND IN LOWEST POSITION, HOB ELEVATED, SIDE RAILS UP X3, BED SIDE TABLE AND CALL LIGHT WITHIN PATIENT REACH. PAIN MGT MEDS ORDERED. ALL DUE MEDS GIVEN. WILL ENDORSE TO NEXT SHIFT
--- NOTE | 2022-10-23 19:30 | NUR ---
BOX SPRING UPHOLSTERER OPENING NOTES RECEIVED PATIENT IN BED AWAKE, ALERT AND ORIENTED. A/O X 4. ON ROOM AIR, BREATHING EVEN AND UNLABORED, NO SIGN OF DISTRESS AND SOB AT THIS TIME. NO COMPLAIN OF PAIN AND DISCOMFORT AT THIS TIME. ABLE TO MAKE NEEDS KNOWN, PATIENT IS AMBULATORY. ON WILMAN DRAIN RIGHT LOWER ABDOMEN. IV LINE AT RFA#20 SL, ON TELE MONITOR WITH CURRENT READING OF SR @ 70'S. WILL CONTINUE WITH THE PLAN OF CARE.
[2022-10-23 20:00] VITALS: BP 114/79
[2022-10-24] VITALS: BP 123/60
[2022-10-24] MEDS: HYDROMORPHONE INJ 2 MG/ML DISP.SYRIN IV PRN ×4 (00:01→12:52)
[2022-10-24] MEDS: PIPERACILLIN /TAZOBACTAM 3.375 G in IV D5W 50 ML IV SCH ×3 (00:18→11:18)
[2022-10-24] MEDS: ACETAMINOPHEN 325 MG TABLET PO SCH ×2 (02:14→09:17)
[2022-10-24 04:00] VITALS: BP_SYST 107; BP_SYST 123; BP_DIAS 56; BP_DIAS 60
[2022-10-24] MEDS: CELECOXIB 100 MG CAPSULE PO SCH (05:28)
--- NOTE | 2022-10-24 07:30 | NUR ---
BUILDING MAINTENANCE MECHANIC OPENING NOTE RECEIVED PT IN BED ASLEEP, A/O X4, ABLE TO MAKE NEEDS KNOWN. ON ROOM AIR TOLERATING WELL WITH NO S/S OF SOB OR DISTRESS. NO SIGNS OF PAIN AT THIS TIME. ON TELE MONITOR WITH CURRENT READING OF SR 88 HR. IV ACCESS RFA #20G SL INTACT, PATENT. S/P SURGERY JPRATT DRAINAGE IS IN PLACE, INTACT, DRAINING WELL. SURGICAL DRESSING IS ASSESSED: NOTED TO BE DRY AND INTACT. SAFETY MEASURES IN PLACE: BED LOCKED AND IN LOWEST POSITION, HOB ELEVATED, SIDE RAILS UP X3, BED SIDE TABLE AND CALL LIGHT WITHIN PATIENT REACH. WILL CONTINUE TO MONITOR AND ADMINISTER ALL SCHEDULED MEDS ORDERED.
[2022-10-24 08:00] VITALS: BP 102/68
[2022-10-24] MEDS ORDERED: AMOX-430 PO (08:54)
[2022-10-24] MEDS: PANTOPRAZOLE 40 MG TABLET.DR PO SCH (09:17)
[2022-10-24 12:00] VITALS: BP 133/88
--- NOTE | 2022-10-24 13:18 | NUR ---
RN NOTES PRN DILAUDID UNADMINISTERED. WASTED DILAUDID MEDICATION 1.5 MG ON OMNICELL WITH WITNESS. PT REFUSED MED AND WANTS TO GO HOME.
--- NOTE | 2022-10-24 13:25 | NUR ---
ROAD MIXER OPERATOR NOTES PT DISCHARGED IN STABLE CONDITION. LEFT THE UNIT AT 1310, AMBULATORY WITH RELATIVE. ALERT/ORIENTED X4, IV ACCESS REMOVED. TELE MONITOR REMOVED. ARM BAND REMOVED. SKIN ASSESSMENT DONE, PICTURES TAKEN. WILMAN DRAIN 30 CC OUTPUT WITH SEROSANGUINEOUS DRAINAGE. ALL BELONGINGS CHECKED AND RECONCILED. HEALTH TEACHING AND DISCHARGE INSTRUCTIONS GIVEN AND UNDERSTOOD. FOLLOW UP WITH DR. TINAJERO ON SUNDAY AND PCP AFTER A WEEK. CHARGE NURSE AWARE.
== END 2022-10-24 13:29 | disposition home or self-care (01) | DRG 710 ==
LOC: ER 11:38 → MEDSG1 20:09 → MED 20:43 → TELE 23:30
PROVIDERS: ADMIT Internal Medicine; ATTEND Internal Medicine
PROC: 0FT40ZZ Resection of Gallbladder, Open Approach (ICD-10-PCS; principal; 2022-10-18)
PROC: 0DNU0ZZ Release Omentum, Open Approach (ICD-10-PCS; 2022-10-18)
DX: A41.9 Sepsis, unspecified organism (principal); E87.20 Acidosis, unspecified; K80.12 Calculus of gallbladder with acute and chronic cholecystitis without obstruction; K82.A1 Gangrene of gallbladder in cholecystitis; F20.9 Schizophrenia, unspecified; Z87.11 Personal history of peptic ulcer disease; K66.0 Peritoneal adhesions (postprocedural) (postinfection); K82.8 Other specified diseases of gallbladder; Z20.822 Contact with and (suspected) exposure to COVID-19; Z79.899 Other long term (current) drug therapy; F17.210 Nicotine dependence, cigarettes, uncomplicated; Z87.09 Personal history of other diseases of the respiratory system; E87.6 Hypokalemia; K57.30 Diverticulosis of large intestine without perforation or abscess without bleeding; N20.0 Calculus of kidney; R74.8 Abnormal levels of other serum enzymes
CPT/HCPCS: 36415; 71045-TC; 74181-TC; 76705-TC; 80048-TC; 80053-TC; 80076-TC; 81001; 83605-TC; 83690-TC; 83735-TC; 84484-TC; 85025-TC; 85730-TC; 87081-TC; 88304-TC; A4223; C9113; C9803; G0378; J0690; J1100; J1170; J2250; J2270; J2405; J2543; J2704; J2765; J3010; J3480; J3490; J7030; J7040; J7050; J7060; J7120; Q9966